=== PATIENT | female | born 1965 | race Two or more races ===

== ENCOUNTER 2020-11-03 20:14 | Emergency (ER) | payer OTHER ==
[~2020-11-03] VITALS: Ht 154.9 cm; Wt 65.0 kg
[2020-11-03] MEDS ORDERED: METOCLOPRAMIDE HCL 10MG/2ML VIAL IV ONE (22:00)
[2020-11-03] MEDS ORDERED: SODIUM CHLORIDE 0.9% 1,000 ML IV ONE (22:00)
[2020-11-03] MEDS ORDERED: DIPHENHYDRAMINE 50MG/ML VIAL IV ONE (22:00)
[2020-11-03 22:29] LABS: BASOPHILS % 0.2 % (0.0-2.0); HEMATOCRIT. 40.6 % (36.0-48.0); HEMOGLOBIN. 13.5 g/dL (12.0-16.0); LYMPHOCYTES % 12.9 % (20.0-50.0); MEAN CORPUSCULAR HEMOGLOBIN 27.6 pg (28.0-32.0); MEAN CORPUSCULAR VOLUME 83.1 fL (81.0-99.0); MEAN PLATELET VOLUME 8.9 fl (7.4-10.4); MONOCYTES % 4.9 % (2.0-8.0); PLATELET 216 x1000/uL (130-400); RED BLOOD CELL COUNT 4.89 mill/uL (4.2-5.4); RED CELL DISTRIBUTION WIDTH 13.1 % (11.6-14.6)
[2020-11-03 22:37] LABS: CHLORIDE 98 mEq/L (98-107)
[2020-11-03 22:40] LABS: ETHANOL BLOOD < 10 mg/dL; PROTHROMBIN TIME 10.4 sec (9.6-11.0)
[2020-11-03] MEDS ORDERED: MAGNESIUM 2 G PREMIX 50 ML IV ONE (23:15)
[2020-11-03] MEDS ORDERED: ACETAMINOPHEN 325MG TABLET PO ONE (23:15)
[2020-11-04] MEDS ORDERED: IOHEXOL-350 100 ML BOTTLE ONE (00:01)
[2020-11-04 01:30] VITALS: BP 144/69
[2020-11-04] MEDS ORDERED: MAGNESIUM 2 G PREMIX 50 ML IV SCH (01:45)
== END 2020-11-04 03:42 | disposition home or self-care (01) ==
LOC: ER 20:14 → EDBD 20:14 → ER 11-04 03:42
DX: R51.9 Headache, unspecified (principal); I10 Essential (primary) hypertension; E11.9 Type 2 diabetes mellitus without complications; Z98.49 Cataract extraction status, unspecified eye
CPT/HCPCS: 36415; 70496; 70498; 71045; 80053; 80320; 83690; 85025; 85610; 93005; 96361; 96365; 96366; 96375; 99285; J1200; J2765; J3475; J7030; Q9967; G0480